=== PATIENT | male | born 1950 | race Caucasian/White ===

== ENCOUNTER 2019-11-27 09:13 | Outpatient (REF) | payer MEDICARE, SELFPAY ==
[2019-11-27 21:32] LABS: HCT 45.4 % (40.0-50.0); HGB 14.8 g/dL (13.5-17.5); Mean Corp. HGB Concentration 32.6 g/dL (32.0-36.0); Mean Corpuscular Hemoglobin 27.6 pg (27.0-33.0); Mean Corpuscular Volume 84.7 fL (80-95); Mean Platelet Volume 10.3 fL (8.0-11.0); Platelet Count 217 x1000/uL (130-400); RBC 5.36 m/cumm (4.50-6.00); RBC Distribution Width 15.4 % (11.8-14.1); White Blood Cell Count 6.83 k/cumm (4.4-10.8)
[2019-11-27 22:06] LABS: ALT 36 U/L (16-63); AST 20 U/L (15-37); Alkaline Phosphatase 73 U/L (46-116); Anion Gap 8.8 mmol/L (3-11); BUN 20 mg/dL (7-18); Bilirubin, Total 0.3 mg/dL (0.2-1.0); CO2 30.2 mmol/L (21.0-32.0); Calculated LDL 115 mg/dL (<100); Chloride 105 mmol/L (98-107); Cholesterol 172 mg/dL (<200); Glucose 80 mg/dL (74-106); HDL Cholesterol 39 mg/dL (40-60); Potassium 4.6 mmol/L (3.5-5.1); Sodium 144 mmol/L (136-145); Total Protein 7.2 g/dL (6.4-8.2); Triglyceride 91 mg/dL (<150)
== END 2019-11-27 09:33 ==
LOC: NCHCN 09:13
PROVIDERS: PCP Internal Medicine; Visit Provider Family Medicine
DX: I10 Essential (primary) hypertension (principal); E78.00 Pure hypercholesterolemia, unspecified
CPT/HCPCS: 80053; 80061; 85027

== ENCOUNTER 2021-04-19 09:42 | Outpatient (REF) | payer MEDICARE, SELFPAY ==
[2021-04-19 17:03] LABS: ALT 33 U/L (16-63); AST 17 U/L (15-37); Alkaline Phosphatase 74 U/L (46-116); Anion Gap 7.4 mmol/L (3-11); BUN 16 mg/dL (7-18); Bilirubin, Total 0.3 mg/dL (0.2-1.0); CO2 32.6 mmol/L (21.0-32.0); CREATININE 0.9 mg/dL (0.70-1.30); Calcium 9.2 mg/dL (8.5-10.1); Calculated LDL 108 mg/dL (<100); Chloride 106 mmol/L (98-107); Cholesterol 167 mg/dL (<200); Glucose 92 mg/dL (74-106); HDL Cholesterol 44 mg/dL (40-60); Potassium 5.1 mmol/L (3.5-5.1); Sodium 146 mmol/L (136-145); Total Protein 7.5 g/dL (6.4-8.2); Triglyceride 76 mg/dL (<150)
== END 2021-04-19 09:43 | disposition home or self-care (01) ==
LOC: NCHCN 09:42
PROVIDERS: PCP Internal Medicine; Visit Provider Family Medicine
DX: I10 Essential (primary) hypertension (principal); E78.00 Pure hypercholesterolemia, unspecified; Z12.5 Encounter for screening for malignant neoplasm of prostate
CPT/HCPCS: 80053; 80061; 84153

== ENCOUNTER 2021-06-30 20:06 | Inpatient (IN) | payer MEDICARE, SELFPAY ==
[2021-06-30] VITALS (27 sets, daily range): BP systolic 163–192; BP diastolic 71–104; PULSE 67–87; RESP 14–29; TEMP 37.2; O2SAT 91–100
--- NOTE | 2021-06-30 20:15 | DI.CT_ITS ---
Exam(s) CT HEAD WO EXAM: CT HEAD WO CLINICAL HISTORY: Fall, amnesia, head injury. TECHNIQUE: Imaging Protocol: Axial computed tomography images with coronal and sagittal reformatted images were created and reviewed COMPARISON: No exams were available for comparison FINDINGS: There are no skull fractures. There is mucosal thickening in maxillary sinuses bilaterally not asso ciated with fluid levels therein. Remainder of the paranasal sinuses are clear as are the mastoid ai r cells. There is no evidence of intracranial hemorrhage, mass effect, or shift of midline structures. There are no extra-axial fluid collections. The ventricles are not enlarged or shifted and there is no blo od within the ventricular system nor within the basal cisterns. IMPRESSION: No acute intracranial findings on this noninfused CT scan of the brain. Mucosal thickening noted in both maxillary sinuses. No fluid levels therein. RADIATION DOSE DELIVERED: 866.42mGy.cm Total DLP DATA REPOSITORY: All CT scans at this facility are submitted to the National Radiology Data Registry (NRDR) Dose Index Registry (DIR) with the [employer] (A[employer]). RADIATION OPTIMIZATION: All CT scans at this facility use at least one of these dose optimization te chniques: automated exposure control; mA and/or kV adjustment per patient size (includes targeted exa ms where dose is matched to clinical indication); or iterative reconstruction.
--- NOTE | 2021-06-30 20:15 | RT.EKG_ITS ---
APPROVED REPORT Exam: Resting ECG Reason for Exam: AMS Patient Location: E HR:80 bpm ECG Measurements Heart Rate 80 AXIS NV 169 P 46 QRSd 105 QRS -13 QT 403 T 1 QTc 463 Conclusion Sinus rhythm...normal P axis, V-rate 60- 99 Probable left ventricular hypertrophy...multiple LVH criteria Inferior infarct, old...Q >35mS, II III aVF
--- NOTE | 2021-06-30 20:30 | DI.RAD_ITS ---
Exam(s) XR CHEST 2V PA LATERAL EXAM: XR CHEST 2V PA LATERAL CLINICAL HISTORY: amnesia, AMS. TECHNIQUE: 2D digital imaging was performed. COMPARISON: No exams were available for comparison FINDINGS: Heart size is normal. The mediastinum is not widened. Subsegmental platelike atelectasis noted in the left lung base lingular segment. No other pulmonary findings. No pleural effusions. IMPRESSION: Subsegmental platelike atelectasis evident in the left lung base lingular segment. DATA REPOSITORY: RADIATION DOSE DELIVERED:
--- NOTE | 2021-06-30 20:42 | ED.GENADUL_ITS ---
Discharge Plan Disposition Patient Disposition: [facility] INPATIENT Condition: Stable Discharge Details Chief Complaint: AMS/LOC Clinical Impression: Global amnesia Primary Care Provider: Geraldine Monge ED Provider: Bud Jimenez Home Meds and New Rx's Prescriptions: No Action aspirin [Adult Aspirin Regimen] 81 mg tablet,delayed release (DR/EC) 81 mg PO DAILY RF: 0 multivitamin Tablet 1 tab PO DAILY RF: 0 pantoprazole 40 mg tablet,delayed release (DR/EC) 40 mg PO DAILY RF: 0 lisinopril 20 mg tablet 20 mg PO DAILY RF: 0 simvastatin 40 mg tablet 40 mg PO DAILY RF: 0 hydrochlorothiazide 25 mg tablet 25 mg PO DAILY RF: 0 tadalafil [Cialis] 5 mg tablet 5 mg PO DAILY PRNRF: 0 mupirocin 2 % ointment 1 applic topical TID 21 Days Qty: 15 RF: 0 Medical Decision Making 71-year-old male presents emergency department with his . She reports she had been away visiting a sick family member in the [facility], returned this evening approximately 5:30 PM. After she returned home and the patient walked in the door from their barn and stated he hit his head. The patient's states that she noticed he then demonstrated to her inability to form anterograde memories, with repetitive questioning on what was happening at home on route.. She also states that he seemed to have no recall of where a large amount of saez in his pocket came from and that he forgets buying a [employer] tractor 3 days ago. I would note the patient's also notes he has had intermittent swelling of his and tongue the past 3 weeks. He does take an MOISES inhibitor and is at risk for angioedema, although I do not feel this is related to today's presentation. Upon arrival to the ER, the patient is pleasant, engaging, alert and interactive he is slightly hypertensive with blood pressure 188/104. This improved to 170/75. ( states typically approixmately 160's SBP) His neurologic exam is notable primarily for memory difficulty, there are no other focal neurologic deficits. 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 He is unable to correctly state the president, the year or month. Differential diagnosis includes transient global amnesia, head injury with concussion, cardiac event, CVA, atypical migraine. 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 CT scan of the head without acute intracranial findings. Chest x-ray within the thinks opacity at the lateral left lung base, representing scarring or atelectasis. See formal report. Laboratories including CBC, chemistries with a troponin, are reassuring. I do feel the patient should be admitted for further work-up potentially to include MRI. Lab Data Lab results reviewed: Yes I reviewed the patient's lab results. Labs: Laboratory Results - last 24 hr 06/30/21 06/30/21 06/30/21 20:45 20:45 20:45 WBC 9.49 RBC 5.08 Hgb 13.7 Hct 41.8 MCV 82.3 MCH 27.0 MCHC 32.8 RDW 14.6 H Plt Count 191 MPV 9.9 Immature Gran % 0.4 Neutrophils % 74.2 Lymphocytes % 14.2 Monocytes % 8.9 Eosinophils % 2.0 Basophils % 0.3 Nucleated RBC % 0 Absolute Neutrophils 7.04 H Absolute Lymphocytes 1.35 Absolute Monocytes 0.84 H Absolute Eosinophils 0.19 Absolute Basophils 0.03 PT 10.5 INR 1.0 Sodium 140 Potassium 3.4 L Chloride 104 Carbon Dioxide 29.3 Anion Gap 6.7 BUN 19 H Creatinine 0.9 Estimated GFR/1.73 m2 >= 60.00 Glucose 107 H Calcium 8.8 Magnesium 1.8 Total Bilirubin 0.3 AST 21 ALT 31 Alkaline Phosphatase 71 Troponin I < 50 Total Protein 7.5 Albumin 3.9 Ethyl Alcohol < 3.0 HPI General Mode of arrival: ambulatory . Date/Time Provider Initiated Documentation: 06/30/21 20:06 . Limitations to Documentation: no limitations . Information obtained by: patient . History of Present Illness 71 year old M presents to the emergency department with the chief complaint of Amnesia, question head injury, Quality is described as constant, and is localized to the head. Patient started experiencing this hour(s) and it has been constant. No relieving factors improve symptom(s), No exacerbating factors reported . Patient notes denies headaches, nausea/vomiting, seizure and weakness. Patient did receive the following treatments prior to arrival, none Related Data Home Medications Medication Instructions Recorded Confirmed aspirin 81 mg tablet,delayed 81 mg PO DAILY 05/25/21 06/30/21 release hydrochlorothiazide 25 mg tablet 25 mg PO DAILY 05/25/21 06/30/21 lisinopril 20 mg tablet 20 mg PO DAILY 05/25/21 06/30/21 multivitamin 1 tab PO DAILY 05/25/21 06/30/21 pantoprazole 40 mg tablet,delayed 40 mg PO DAILY 05/25/21 06/30/21 release simvastatin 40 mg tablet 40 mg PO DAILY 05/25/21 06/30/21 tadalafil 5 mg tablet 5 mg PO DAILY PRN 05/25/21 06/23/21 mupirocin 2 % topical ointment 1 applic TOPICAL TID 21 Days #15 g 06/23/21 06/23/21 Previous Rx's Medication Instructions Recorded mupirocin 2 % topical ointment 1 applic TOPICAL TID 21 Days #15 g 06/23/21 Allergies Allergy/AdvReac Type Severity Reaction Status Date / Time No Known Allergies Allergy Verified 06/30/21 20:40 General Stated Complaint: AMS/LOC PETER: 3 Review of Systems Narrative: Denies any headache. His states he has been having intermittent chest pains for some weeks. She states he slipped and fell on ice working at the barn twice in the past 2 weeks. Patient denies to me headache, neck, back, chest pain. 8 systems were reviewed and otherwise negative. PFSH All Active Problems (Updated 06/30/21 @ 21:57 by Bud Jimenez MD) Global amnesia (Acute) Nasal polyposis (Acute) Lesion of nasal septum (Acute) Medical History Erectile dysfunction GERD (gastroesophageal reflux disease) Hypercholesterolemia Hypertension Left ankle pain Lesion of nasal cavity Obesity Prostate cancer Rotator cuff tear Tremor Surgical History H/O left knee surgery duplicate patella removed History of surgery on left wrist Hx of prostatectomy Hx of wisdom tooth extraction Family History Mother Colon cancer Sister Colon cancer Brother Colon cancer Social History Smoking/Tobacco Use Status: Never Smoking risk assessment performed?: Yes Alcohol Intake: current Alcohol Intake frequency: holidays/special occasions only Drug use: Never Substance use type: does not use Household members: spouse 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 Pleasant, well groomed, interactive. HEAD: Normocephalic, atraumatic ENT: Mucous membranes moist, oropharynx unremarkable, External ear exam unremarkable EYES: PERRL, EOMI NECK: Nontender, no step-off or deformity, full ROM, no FABRICIO, no menigismus CHEST/RESP: Nontender, clear to auscultation bilateral, no wheeze/rhonchi/rales CARDIOVASCULAR: RRR, no murmur, rub raymundo. 2+ Rad pulse bilateral ABDOMEN: Soft, nontender, no mass. +Bowel sounds EXT: Full ROM, no edema, no rash Neuro: Grossly normal neurologic exam, conversant, interactive. Psych: Speech fluent, thoughts congruent, affect normal Course Vital Signs Vital signs: Vital Signs Pulse 87 06/30/21 20:14 Respiratory Rate 18 06/30/21 20:14 Blood Pressure 188/104 H 06/30/21 20:14 Pulse Oximetry 98 06/30/21 20:14 Pulse 87 06/30/21 20:14 Respiratory Rate 18 06/30/21 20:14 Respiratory Effort 06/30/21 20:19 Respiratory Depth Normal 06/30/21 20:19 Respiratory Pattern Normal 06/30/21 20:19 Blood Pressure 188/104 H 06/30/21 20:14 Pulse Oximetry 98 06/30/21 20:14 Oxygen Delivery Method Room Air 06/30/21 20:14 Oxygen Flow Rate 0 06/30/21 20:14 Pain Level 0 06/30/21 20:14
[2021-06-30 21:01] LABS: Abs Immature Grans 0.04 10^3/uL (0.0-0.06); Absolute Basophil Count 0.03 10^3/uL (0.0-0.2); Absolute Eosinophil Count 0.19 10^3/uL (0.0-0.7); Absolute Lymphocyte Count 1.35 10^3/uL (1.2-3.4); Absolute Monocyte Count 0.84 10^3/uL (0.1-0.8); Absolute Neutrophil Count 7.04 10^3/uL (1.2-6.7); Basophils % 0.3; HCT 41.8 % (40.0-50.0); HGB 13.7 g/dL (13.5-17.5); Immature Grans % 0.4; Lymphocytes % 14.2; MCHC 32.8 % (32.0-36.0); MCV 82.3 fL (80-95); MPV 9.9 fL (8.0-11.0); Monocytes % 8.9; Neutrophils % 74.2; Nucleated RBC 0 %; Platelet Count 191 10^3/uL (130-400); RBC 5.08 10^6/uL (4.36-5.78); RDW 14.6 % (11.8-14.1); RDW-SD 43.6 fL; WBC 9.49 10^3/uL (4.4-10.8)
--- NOTE | 2021-06-30 21:11 | DI.VRAD_ITS ---
PROCEDURE INFORMATION: Exam: CT Head Without Contrast Exam date and time: 06/30/2021 8:29 PM Age: 71 years old Clinical indication: Injury or trauma; Fall; Blunt trauma (contusions or hematomas) TECHNIQUE: Imaging protocol: Computed tomography of the head without contrast. COMPARISON: No relevant prior studies available. FINDINGS: Brain: Cerebral sulci show bilateral symmetry with no supratentorial mass or mass effect detected. Brainstem and cerebellum are normal in appearance. There is no evidence of acute intracranial hemorrhage. Cerebral ventricles: Ventricular and cisternal spaces are normal in size and configuration and there is no midline shift or hydrocephalus seen. Paranasal sinuses: Bilateral maxilloethmoidal mucosal disease noted. Mastoid air cells: Normally pneumatized and clear bilaterally. Bones/joints: Bony calvarium and skull base are intact and no acute fractures are detected. Soft tissues: Unremarkable. IMPRESSION: Unremarkable noncontrast head CT with no evidence of an acute intracranial process. Dictated and Authenticated by: Jozef Rendon MD. Ordering:GERMÁN Farrell MD
--- NOTE | 2021-06-30 21:13 | DI.VRAD_ITS ---
PROCEDURE INFORMATION: Exam: XR Chest Exam date and time: 06/30/2021 8:42 PM Age: 71 years old Clinical indication: Other: Fall, amnesia TECHNIQUE: Imaging protocol: XR of the chest. Views: 2 views. COMPARISON: No relevant prior studies available. FINDINGS: Lungs: Indistinct opacity at the lateral left lung base could represent minimal scarring or subsegmental atelectasis with the remainder of both lungs and their pleural margins otherwise clear. Pleural spaces: No pneumothorax or pleural effusion seen. Heart/Mediastinum: Heart size is normal and vessel margins are sharply defined. Bones/joints: No acute osseous lesions are detected. IMPRESSION: Indistinct opacity at the lateral left lung base could represent minimal scarring or subsegmental atelectasis and there is no other evidence of an acute cardiopulmonary process detected. Dictated and Authenticated by: Jozef Rendon MD. Ordering:GERMÁN Farrell MD
[2021-06-30 21:18] LABS: Prothrombin Time 10.5 sec (9.3-11.0)
[2021-06-30 21:28] LABS: ALT 31 U/L (16-63); AST 21 U/L (15-37); Albumin 3.9 g/dL (3.4-5.0); Alkaline Phosphatase 71 U/L (46-116); Anion Gap 6.7 mmol/L (3-11); BUN 19 mg/dL (7-18); Bilirubin, Total 0.3 mg/dL (0.2-1.0); CO2 29.3 mmol/L (21.0-32.0); CREATININE 0.9 mg/dL (0.70-1.30); Calcium 8.8 mg/dL (8.5-10.1); Chloride 104 mmol/L (98-107); Glucose 107 mg/dL (74-106); Magnesium 1.8 mg/dL (1.8-2.4); Potassium 3.4 mmol/L (3.5-5.1); Sodium 140 mmol/L (136-145); Total Protein 7.5 g/dL (6.4-8.2); Troponin I < 50 ng/L (<or=60)
[2021-06-30 21:29] LABS: ETHANOL BLOOD < 3.0 mg/dL (<10)
[2021-06-30] MEDS: Normal Saline 1,000 ML 125 ML IV (21:30)
[2021-06-30 21:37] LABS: Bilirubin Negative (Negative); Blood Trace-lysed (Negative); Clarity Clear (Clear); Glucose Negative (Negative); Ketones Negative (Negative); Leukocyte Esterase Negative (Negative); Nitrite Negative (Negative); Specific Gravity 1.025 (1.005-1.025); Urobilinogen 0.2 EU/dL (Up TO 0.2)
[2021-06-30 21:44] LABS: Bacteria Negative HPF (Negative); C & S Indicated? No; Casts Negative LPF (Negative); Crystals Negative HPF (Negative); Epithelial Cells Few HPF (Negative); Mucus Negative (Negative); WBC 0-2 HPF (0-5)
[2021-06-30 21:50] LABS: Source Nasal/Nares
[2021-06-30] MEDS: Aspirin 325 MG TAB PO (22:01)
[2021-06-30] MEDS: Potassium Chloride 20 MEQ TABCR PO (22:49)
--- NOTE | 2021-06-30 23:26 | HPE_ITS ---
Date of service: 06/30/21 Time of Service: 23:26 Assessment and Plan Assessment and plan (1) Acute alteration in mental status: Status: Acute Assessment and plan: Rule out CVA, rule out posterior reversible encephalopathy syndrome, rule out post concussion (although no clear hx of closed head injury) Will monitor on telemetry with frequent vital signs and neurologic checks. We will try to bring his blood pressure down under 150 mm. We will give him labetalol and if this is unsuccessful then consider transfer to ICU for nicardipine drip. Will obtain MRI scan of the brain in the morning and requested neurology consultation. (2) Hypertension: Assessment and plan: Uncontrolled hypertension. Unclear as to whether exacerbation his blood pressure readings tonight or cause or effect of his acute mental status alteration. Based on the patient's acute onset of confusion/memory loss and his uncontrolled BP I think it would be prudent to move him to ICU for placement of radial arterial line for monitoring of his BP and initiation of nifedipine drip if this confirms his elevated blood pressure readings. Qualifiers: Hypertension type: primary hypertension Qualified Code(s): I10 - Essential (primary) hypertension History of Present Illness History of Present Illness Chief Complaint: altered mental status Narrative: 71-year-old male with history of hypertension and hypercholesterolemia, prostate cancer who presented this evening to the ED at [facility] with acute confusion. Patient's had been away visiting a sick family member in [place] and returned this evening around 5:30 PM and found her to be confused with short-term memory loss. Patient had just walked into home from their barn the patient reported that he had hit his head. Patient had a large amount of saez in his pocket and could not recall where the money came from and the patient also had forgotten that he recently had bought a [employer] tractor 3 days prior. 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 Patient was evaluated in the emergency department by Dr. 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 Nevertheless she could not state the current year or month nor the [facility] states nor could he recall that he had told his that he did hit his head nor could he recall having bought the tractor. Evaluation in the emergency department clued a CT scan of his head as well as a chest x-ray and routine labs. Noncontrast CT scan of the head was unremarkable. Chest x-ray suggested an indistinct opacity at the left lateral lung base for which minimal scarring or subsegmental atelectasis could not be excluded. Otherwise no acute cardiopulmonary process was detected. Labs including CBC, CMP, blood alcohol level, nasal PCR for SARS-CoV-2, pro time and INR, and a urinalysis. All of his labs are pretty unremarkable except for a mild hypokalemia with a potassium of 3.4 but otherwise normal troponin levels and normal LFTs and the rest of his electrolytes and CBC were normal. Urinalysis also was unremarkable. SARS-CoV-2 PCR is pending at this time. Blood alcohol level was less than 3.0 milligrams per deciliter. With regard to his vital signs of note his blood pressure was elevated on admission at 188/104 and was as high as 192/71. Per Dr. Jimenez's discussion with the patient's his usual blood pressure runs in the 160s. He did not receive anything for treatment of his blood pressure in the emergency department and prior to admission his blood pressure is decreased to 165/73. Patient usually takes lisinopril 20 mg daily along with hydrochlorothiazide 25 mg daily. His informed Dr. Jimenez that the patient had been recently complaining of swelling of his tongue although none was noted tonight. I discussed with Dr. Jimenez appropriate placement the patient and he felt the patient could be managed on medical/surgical floor with telemetry monitoring. Further evaluation be obtained in the morning including an MRI of the brain. For tonight we will try to keep his blood pressure under 180 mm and diastolic blood pressure under 110 mm. Review of Systems Unobtainable due to mental status and Unobtainable due to (patient denies any sx of headache, blurred vision, diplopia, n/v) Constitutional Constitutional: Denies headache(s) and Denies weakness Eyes Eyes: Denies loss of vision ENT Ears, Nose, Mouth, and Throat: Denies abnormal hearing, Denies dizziness and Denies headache(s) Musculoskeletal Musculoskeletal: Denies numbness and Denies tingling Neurologic Neurologic: Reports as per HPI, Denies abnormal hearing, Denies abnormal speech, Denies dizziness, Denies headache(s), Denies loss of vision, Reports memory loss, Denies numbness, Denies other visual disturbances, Denies convulsions, D enies seizure-like activity, Denies sensory deficit, Denies tingling, Denies paresthesias and Denies weakness Psychiatric Psychiatric: Reports memory loss PFSH All Active Problems (Updated 07/01/21 @ 00:12 by Lai Jasmine) Acute alteration in mental status (Acute) Global amnesia (Acute) Nasal polyposis (Acute) Lesion of nasal septum (Acute) Medical History Erectile dysfunction GERD (gastroesophageal reflux disease) Hypercholesterolemia Hypertension Left ankle pain Lesion of nasal cavity Obesity Prostate cancer Rotator cuff tear Tremor Surgical History H/O left knee surgery duplicate patella removed History of surgery on left wrist Hx of prostatectomy Hx of wisdom tooth extraction Family History Mother Colon cancer Sister Colon cancer Brother Colon cancer Social History Smoking/Tobacco Use Status: Never Smoking risk assessment performed?: Yes Alcohol Intake: current Alcohol Intake frequency: holidays/special occasions only Drug use: Never Substance use type: does not use Household members: spouse 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 Pets and animals: Yes Pets and animals: dog(s) What is your relationship status?: Panel score (0-1 are the most socially isolated patients): 1 Do you feel safe at home: Yes Do you feel safe in your relationship?: Yes Meds Allergies and Home Medications Allergies Allergy/AdvReac Type Severity Reaction Status Date / Time No Known Allergies Allergy Verified 06/30/21 20:40 Home Medications Medication Instructions Recorded Confirmed Type aspirin 81 mg tablet,delayed 81 mg PO DAILY 05/25/21 06/30/21 History release hydrochlorothiazide 25 mg tablet 25 mg PO DAILY 05/25/21 06/30/21 History lisinopril 20 mg tablet 20 mg PO DAILY 05/25/21 06/30/21 History multivitamin 1 tab PO DAILY 05/25/21 06/30/21 History pantoprazole 40 mg tablet,delayed 40 mg PO DAILY 05/25/21 06/30/21 History release simvastatin 40 mg tablet 40 mg PO DAILY 05/25/21 06/30/21 History tadalafil 5 mg tablet 5 mg PO DAILY PRN 05/25/21 06/23/21 History mupirocin 2 % topical ointment 1 applic TOPICAL TID 21 Days #15 g 06/23/21 06/23/21 Rx Exam Narrative Exam Narrative: I checked his BP in both arms using a large arm cuff using both manual and automated cuff. right arm per manual was 164/84 and per automated cuff was 167/87; in the left arm it was 184/90 manual and 179/91 per auto cuff Const General: cooperative, healthy appearing and no acute distress Nutritional Appearance: obese Orientation: alert, awake, oriented to person, oriented to place (only in that he knows he is in a hospital but was unsure as to which one), not oriented to time and confused HENAL Head: normal to inspection, no palpable skull fracture and normocephalic Ears: hearing grossly normal bilaterally, external ears normal and TM's normal bilaterally General nose exam: external nose normal, nares normal, nasal mucous membranes and turbinates normal and septum normal Face and sinus: normal facial exam Mouth: oral mucosae normal, lip normal, tongue normal, oropharynx normal and moist mucous membranes Teeth and gingiva: dentition normal Throat: posterior oropharynx normal Eyes General: appearance normal, both eyes and all related structures Alignment and Position: alignment normal Periorbital: periorbital findings normal Eyelids: eyelids normal Conjunctivae: conjunctivae normal Sclera: sclerae normal Cornea: corneas normal Pupils: PERRL, normal by confrontation and accommodation normal EOM: EOM intact bilaterally Direct ophthalmoscopy: normal light reflex, no papilledema and fundi normal bilaterally Neck Neck: normal visual inspection, full ROM, no lymphadenopathy, no meningeal signs, trachea midline, supple and no JVD Thyroid: thyroid normal Carotids: normal carotid upstroke Lymphatic: no lymphadenopathy noted Chest Chest: normal inspection of the chest and normal palpation of entire chest wall Resp Effort & Inspection: normal respiratory effort and able to speak in complete sentences Auscultation: clear to auscultation bilaterally Percussion: percussion normal Cardio Jugular venous pressure: no JVD Palpation: normal PMI Rate: regular rate Rhythm: regular rhythm Heart Sounds: S1 normal, S2 normal and normal, physiologic split S2 Bruits: no abdominal aortic bruits Pulses: brachial pulses present, radial pulses present, ulnar radial pulses present, posterior tibial pulses present and dorsalis pedis present GI Inspection: normal to inspection Palpation: soft and no hepatosplenomegaly Percussion: normal to percussion Auscultation: normal bowel sounds Back/Spine/Pelvis Back: no CVA tenderness Cervical Spine: normal cervical lordosis Thoracic/Lumbar Spine: thoracic and lumbar spine normal to inspection Skin General skin exam: no rashes or lesions noted Lesions: no lesions Trauma: no lacerations or abrasions Wounds: no wounds Nails: normal Neuro General: patient alert, patient awake and oriented Patient Orientation: Person and Place (knows) Cranial Nerves: CN's II-XI intact bilaterally Cognition: abnormal cognition Speech: speech normal Motor: muscle tone normal throughout, strength 5/5 throughout, no pronator drift, no movement abnormalities noted and no fasciculations Sensory Exam: no sensory deficits noted DTR's: Rt Triceps: 3+, Lt Triceps: 3+, Rt Biceps: 3+, Rt Brachioradialis: 3+, Lt Brachioradialis: 3+, Rt Patellar: 2+, Lt Patellar: 2+, Rt Ankle: 2+ and Lt Ankle: 2+ Plantar Reflexes: Withdrawal: left and bilateral Pupils: Normal pupillary reactivity/response: bilateral Extrem General: normal to inspection, full ROM and capillary refill normal Psych Appearance: grossly normal and well kempt Mental Status: other Speech and Movement: speech and movement normal Mood: other Affect: normal affect Attitude: cooperative Thought Process: circumstantial and perseverating Thought Content: ideas of reference Insight: poor Judgment: poor Results Imaging Chest x-ray: report reviewed Additional studies: Noncontrast CT scan of the head: FINDINGS: Brain: Cerebral sulci show bilateral symmetry with no supratentorial mass or mass effect detected. Brainstem and cerebellum are normal in appearance. There is no evidence of acute intracranial hemorrhage. Cerebral ventricles: Ventricular and cisternal spaces are normal in size and configuration and there is no midline shift or hydrocephalus seen. Paranasal sinuses: Bilateral maxilloethmoidal mucosal disease noted. Mastoid air cells: Normally pneumatized and clear bilaterally. Bones/joints: Bony calvarium and skull base are intact and no acute fractures are detected. Soft tissues: Unremarkable. IMPRESSION: Unremarkable noncontrast head CT with no evidence of an acute intracranial process. EKG: image reviewed Labs Result diagrams: 06/30/21 20:45 06/30/21 20:45 Labs: Laboratory Results - last 24 hr 06/30/21 06/30/21 06/30/21 20:45 20:45 20:45 WBC 9.49 RBC 5.08 Hgb 13.7 Hct 41.8 MCV 82.3 MCH 27.0 MCHC 32.8 RDW 14.6 H Plt Count 191 MPV 9.9 Immature Gran % 0.4 Neutrophils % 74.2 Lymphocytes % 14.2 Monocytes % 8.9 Eosinophils % 2.0 Basophils % 0.3 Nucleated RBC % 0 Absolute Neutrophils 7.04 H Absolute Lymphocytes 1.35 Absolute Monocytes 0.84 H Absolute Eosinophils 0.19 Absolute Basophils 0.03 PT 10.5 INR 1.0 Sodium 140 Potassium 3.4 L Chloride 104 Carbon Dioxide 29.3 Anion Gap 6.7 BUN 19 H Creatinine 0.9 Estimated GFR/1.73 m2 >= 60.00 Glucose 107 H Calcium 8.8 Magnesium 1.8 Total Bilirubin 0.3 AST 21 ALT 31 Alkaline Phosphatase 71 Troponin I < 50 Total Protein 7.5 Albumin 3.9 Urine Color Urine Clarity Urine pH Ur Specific [place] Urine Protein Urine Ketones Urine Blood Urine Nitrite Urine Bilirubin Urine Urobilinogen Ur Leukocyte Esterase Urine RBC Urine WBC Ur Epithelial Cells Urine Crystals Urine Bacteria Urine Casts Urine Mucus Ur Culture Indicated? Urine Glucose Ethyl Alcohol < 3.0 COVID-19 Source 06/30/21 06/30/21 21:20 21:45 WBC RBC Hgb Hct MCV MCH MCHC RDW Plt Count MPV Immature Gran % Neutrophils % Lymphocytes % Monocytes % Eosinophils % Basophils % Nucleated RBC % Absolute Neutrophils Absolute Lymphocytes Absolute Monocytes Absolute Eosinophils Absolute Basophils PT INR Sodium Potassium Chloride Carbon Dioxide Anion Gap BUN Creatinine Estimated GFR/1.73 m2 Glucose Calcium Magnesium Total Bilirubin AST ALT Alkaline Phosphatase Troponin I Total Protein Albumin Urine Color Yellow Urine Clarity Clear Urine pH 7.0 Ur Specific [place] 1.025 Urine Protein Negative Urine Ketones Negative Urine Blood Trace-lysed H Urine Nitrite Negative Urine Bilirubin Negative Urine Urobilinogen 0.2 Ur Leukocyte Esterase Negative Urine RBC 3-5 H Urine WBC 0-2 Ur Epithelial Cells Few Urine Crystals Negative Urine Bacteria Negative Urine Casts Negative Urine Mucus Negative Ur Culture Indicated? No Urine Glucose Negative Ethyl Alcohol COVID-19 Source Nasal/Nares Last Vital Signs Pulse 72 06/30/21 22:16 Resp 22 06/30/21 22:16 BP 165/73 H 06/30/21 22:16 Pulse Ox 95 06/30/21 22:20
[2021-06-30 23:45] LABS: Troponin I < 50 ng/L (<or=60)
[2021-07-01] VITALS (86 sets, daily range): BP systolic 115–211; BP diastolic 56–158; PULSE 54–136; RESP 12–29; TEMP 36.6–36.8; O2SAT 88–97
[2021-07-01 00:18] LABS: COVID-19 PCR Negative (Negative)
--- NOTE | 2021-07-01 03:08 | W.PM.OP ---
Date of service: 07/01/21 Time of Service: 03:08 Operative Note Operative Note DATE OF PROCEDURE: 07/01/21 PRE-OP DIAGNOSIS: hypertensive urgency; r/o PRES POST-OP DIAGNOSIS: same PROCEDURE: left radial artery catheterization Refer to Anesthesia Record ESTIMATED BLOOD LOSS: 5 Patient was transported to: no change Patient's condition: stable Indications: hypertensive urgency; r/o PRES Procedure Description: After obtaining verbal consent from the patient and the patient's having explained indications, potential risks and alternative treatment, the left radial artery and ulnar artery were palpated and having confirmed collateral flow to the left hand, the left hand was prepped and draped in sterile fashion after cleansing the skin in sterile chlorhexidine prep. Using the translinear high frequency probe on a [employer] PX machine the radial artery was identified. The skin on either side of the artery was infiltrated w/ 0.5 mL of 1% lidocaine w/out epinephrine. The left radial artery was cannulated using an Arrow 20 gauge 1 1/2 inch quick flash radial arterial catheter. Direct visualization of the needle insertion was obtained using ultrasound guidance in the transverse plane of the artery. Flash of blood was seen in the catheter and the self contained arterial guide wire was advanced. However when the catheter was advanced, resistance was met necessitating removal of the guide wire and restarting w/ a new kit. Again ultrasound was used to identify the artery and ensure patency. The second attempt was successful and the guide wire and catheter were successfully advanced with pulsatile flow from the catheter. The skin was re-anesthetized with 0.5 mL of lidocaine and the catheter was sutured to the skin and a sterile dressing was applied. After the catheter was flushed and zeroed, the initial arterial BP reading was 206/77. The patient will be started on nifedipine drip to titrate to SBP under 150 mm.
[2021-07-01] MEDS: Lidocaine 1% Multi-Dose 20 ML VIAL (03:12)
[2021-07-01] MEDS: niCARdipine 25 MG in Normal Saline 240 ML 50 MG IV (03:32)
[2021-07-01 07:18] LABS: TSH (W/Ref FT4) 7.75 uIU/mL (0.36-3.74)
[2021-07-01 07:34] LABS: FREE T4 0.78 ng/dL (0.76-1.46)
[2021-07-01] MEDS: niCARdipine 25 MG in Normal Saline 240 ML 75 MG IV (07:57)
[2021-07-01] MEDS: Potassium Chloride 20 MEQ TABCR PO ×2 (08:38→19:41)
[2021-07-01] MEDS: Chlorthalidone 25 MG TAB PO (08:38)
[2021-07-01] MEDS: Aspirin E.C. 81 MG TABEC PO (08:38)
[2021-07-01] MEDS: Multivitamin TAB 1 TAB PO (08:38)
[2021-07-01] MEDS: Simvastatin 40 MG TAB PO (08:38)
[2021-07-01] MEDS: Enoxaparin 40 MG/0.4 ML SYR SC (08:38)
--- NOTE | 2021-07-01 09:15 | PDOC.CMIN ---
- If Service Date Differs Date of service: 07/01/21 Time of Service: 09:15 Care Management Initial Assess REASON FOR HOSPITALIZATION:: Acute AMS, amnesia, confusion PAST MEDICAL HISTORY/PAST SURGICAL HISTORY:: Medical History . Erectile dysfunction. GERD (gastroesophageal reflux disease). Hypercholesterolemia. Hypertension. Left ankle pain. Lesion of nasal cavity. Obesity. Prostate cancer. Rotator cuff tear. Tremor. Surgical History . H/O left knee surgery. duplicate patella removed. History of surgery on left wrist. Hx of prostatectomy. Hx of wisdom tooth extraction PREVIOUS FUNCTIONAL STATUS/SOCIAL/FAMILY SUPPORTS:: Resides in [place] with [place] he is independent at baseline with a supportive family. CURRENT FUNCTIONAL STATUS:: Per RN, Anjelicas mental status is starting to clear. His is being updated over the phone, as well as many other family members. Work up continues; awaiting updates from interdisciplinary team. Frederic is preparing to go downstairs for imaging, he is in a wheelchair at the threshold of his room. CM is updated by RN, Frederic is scheduled for multiple consults and tests today. CM will continues to follow. Has patient been provided with info about the portal/API?: Yes Did the patient sign up for the portal?: Yes (Previously) CODE STATUS:: Full Code INSURANCE COVERAGE / FINANCIAL ISSUES:: BC/BS. [facility] CURRENT HOME/COMMUNITY SERVICES/EQUIPMENT:: None, currently. PRIMARY CARE PHYSICIAN:: Geraldine Monge POTENTIAL DISCHARGE NEEDS:: Follow up appointments, neurology consult. PATIENT/FAMILY EDUCATION NEEDS:: Review discharge instructions, discuss Ask Me [employer]. ANTICIPATED BARRIERS TO DISCHARGE:: None identified. TRANSPORTATION:: Via private vehicle with family. PLAN:: Anticipate Frederic will return home when ready per MD. He will have outpatient follow up, follow up with his PCP and transport with his family.
[2021-07-01] MEDS: diazePAM 10 MG/2 ML SYR 3 MG IVP (10:38)
--- NOTE | 2021-07-01 12:27 | NCONE_ITS ---
Date of service: 07/01/21 Time of Service: 12:27 Assessment and Plan Assessment and plan (1) Acute alteration in mental status: Status: Acute (2) Global amnesia: Status: Acute Assessment and plan: Mr. Melo is a 71 year-old, right-handed man who was admitted with altered mental status/confusion that has improved overnight. The timing and duration of symptoms are unknown which makes figuring out what happened quite difficult. Based on what we do know, Transient Global Amnesia seems most likely etiology. I recommend further work-up with a brain MRI w/o as well as a vitamin B12 level. Hypertensive encephalopathy and PRES seem less likely but again recommend MRI as further work-up. He should follow-up in the neurology clinic in 4-6 weeks. History of Present Illness History of Present Illness Chief Complaint: AMS Narrative: Handedness: right. HPI: Mr. Melo is a 71 year-old man with hypertension, hyperlipidemia, and GERD. He was brought to the ER yesterday by his after she returned from out of town (left town on 06/28/21) and found him confused with money his pockets and no recollection of how it got there. 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 He works daily and notes that on a normal basis he doesn't know what day of the week it is. Thus, putting together a timeline of events since his has been gone was difficult. He recalls attending an optometry visit on Monday06/28/21. Followed by working on the horse facility. On Monday06/29/21 he recalls his ladder tipping over due to being place don unsteady ground. He landed on his back. Does not think he hit his head. Was not injured and able to carry on with his normal activities. 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 He believes that that client could have recognized if he was not in a normal state. He can't give me any information from yesterday. He does not recall his returning. Does not recall being the ER. He has not had any headaches. He believes he ate and drank normally while was gone as she preps meals for him ahead of time. He drinks ETOH only rarely and none in the last week. He has nocturia 2-3x per night. Feels rested - though notes sleep has improved with new bed in which he can sleep more upright. He snores. He has never had a sleep study. In the ER, his BP was 180-200s systolic. CBC, CMP, UA ok. TSH 7.75, FT4 0.78. Trop x 1 neg. CTH unremarkable (I reviewed the images personally). Overnight, he seems to be doing better. This am seems to be back to baseline. On nifedipine drip for his persistently elevated BP. Consults Requesting physician: Lai Jasmine Review of Systems All systems reviewed & are unremarkable except as noted in HPI and below PFSH All Active Problems (Updated 07/01/21 @ 00:12 by Lai Jasmine) Acute alteration in mental status (Acute) Global amnesia (Acute) Nasal polyposis (Acute) Lesion of nasal septum (Acute) Medical History Erectile dysfunction GERD (gastroesophageal reflux disease) Hypercholesterolemia Hypertension Left ankle pain Lesion of nasal cavity Obesity Prostate cancer Rotator cuff tear Tremor Surgical History H/O left knee surgery duplicate patella removed History of surgery on left wrist Hx of prostatectomy Hx of wisdom tooth extraction Family History Mother Colon cancer Sister Colon cancer Brother Colon cancer Social History Smoking/Tobacco Use Status: Never Smoking risk assessment performed?: Yes Alcohol Intake: current Alcohol Intake frequency: holidays/special occasions only Drug use: Never Substance use type: does not use Household members: spouse 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 Pets and animals: Yes Pets and animals: dog(s) What is your relationship status?: Panel score (0-1 are the most socially isolated patients): 1 Do you feel safe at home: Yes Do you feel safe in your relationship?: Yes Visit Medication and Allergies Active Medications Generic Name Dose Route Start Last Admin Trade Name Freq PRN Reason Stop Dose Admin Acetaminophen 0 mg 06/30/21 22:01 Acetaminophen 325 Mg Tab PO Q4H PRN PRN Al Hydrox/Mg Hydrox/Simethicone 30 ml 06/30/21 22:01 Mylanta Suspension 30 Ml Cup PO Q2H PRN PRN Amlodipine Besylate 5 mg 07/01/21 11:35 Amlodipine 5 Mg Tab PO DAILY [facility] Aspirin 81 mg 07/01/21 08:30 07/01/21 08:38 Aspirin E.C. 81 Mg Tabec PO 81 mg DAILY [facility] Administration Atorvastatin Calcium 20 mg 07/01/21 20:00 Atorvastatin 20 Mg Tab PO QPM [facility] Chlorthalidone 25 mg 07/01/21 08:30 07/01/21 08:38 Chlorthalidone 25 Mg Tab PO 25 mg DAILY [facility] Administration Dimethicone/Zinc Oxide 0 gm 06/30/21 22:01 Juvenal Protect Cream 142 Gm Tube TP PRN PRN Docusate Sodium 100 mg 06/30/21 22:01 Docusate Sodium 100 Mg Cap PO TID PRN PRN Enoxaparin Sodium 40 mg 07/01/21 08:00 07/01/21 08:38 Enoxaparin 40 Mg/0.4 Ml Syr SC 40 mg Q24H [facility] Administration Sodium Chloride 500 mls @ 0 mls/hr 06/30/21 20:41 Saline 500ml Bag IV PRN PRN As Directed Nicardipine HCl 50 mg/ Sodium 500 mls @ 75 mls/hr 07/01/21 10:00 Chloride IV INFUSION [facility] Protocol 7.5 MG/HR IV Miscellaneous Supplies 1 each 06/30/21 20:45 Iv Access IV DIRECTED [facility] Labetalol HCl 20 mg 07/01/21 03:32 Labetalol 100 Mg/20 Ml Vial IVP Q1H PRN PRN Magnesium Hydroxide 30 ml 06/30/21 22:01 Milk Of Magnesia 30 Ml Cup PO DAILY PRN PRN Multivitamins 1 tab 07/01/21 08:30 07/01/21 08:38 Multivitamin Tab PO 1 tab DAILY [facility] Administration Polyethylene Glycol 17 gm 06/30/21 22:01 Polyethylene Glycol 3350 17 Gm Packet PO DAILY PRN PRN Constipation Potassium Chloride 20 meq 07/01/21 08:30 07/01/21 08:38 Potassium Chloride 20 Meq Tabcr PO 20 meq BID [facility] Administration Sodium Chloride 0 ml 06/30/21 20:41 Normal Saline Flush 10 Ml Syr IVP PRN PRN Allergies No Known Allergies Allergy (Verified 06/30/21 20:40) Exam Narrative Exam Narrative: Physical Exam: Gen: Patient of apparent stated age, NAD Head and face: no facial or cranial abnormalities Neck: Supple, no meningismus, no occipital tenderness CV: + S1, S2, RRR, no murmur Resp: CTA B/L Abd: soft, nontender, nondistended Ext: No edema. No clubbing or cyanosis. No bony deformity. Neuro Exam: Language: fluency, naming, repetition, and comprehension intact; Mental Status: AAOx3, current events limited though fund of knowledge appears intact; Speech: no dysarthria Cranial nerves: Funduscopy: not performed CN II: visual cunningham intact CN III, IV, : extraocular movements intact, no nystagmus, pupils symmetric and reactive to light CN V: face sensation intact to LT and PP CN VII: no facial asymmetry noted CN VIII: hearing intact bilaterally CN IX, X: palate rises symmetrically CN XI: trapezius/SCM 5/5 bilaterally CN XII: protrudes tongue symmetrically Sensory: intact to LT, PP, vibration, and joint position in all extremities Motor: bulk and tone intact. Fine motor movements intact bilaterally. No pronator drift. Strength 5/5 throughout including the deltoids, biceps, triceps, wrist extensors, hip flexors, knee flexors, knee extensors, ankle flexors, and ankle extensors. Reflexes: 2+ at the biceps, triceps, brachioradialis; reduced in the LE; toes down going bilaterally; Coordination: FTN and HTS intact bilaterally Gait: not tested Results Last Vital Signs Temp 98.1 F 07/01/21 08:15 Pulse 63 07/01/21 09:42 Resp 20 07/01/21 09:42 BP 141/59 H 07/01/21 09:42 Pulse Ox 95 07/01/21 09:42 Labs Result diagrams: 06/30/21 20:45 06/30/21 20:45 Labs: Laboratory Results - last 24 hr 06/30/21 06/30/21 06/30/21 20:45 20:45 20:45 WBC 9.49 RBC 5.08 Hgb 13.7 Hct 41.8 MCV 82.3 MCH 27.0 MCHC 32.8 RDW 14.6 H Plt Count 191 MPV 9.9 Immature Gran % 0.4 Neutrophils % 74.2 Lymphocytes % 14.2 Monocytes % 8.9 Eosinophils % 2.0 Basophils % 0.3 Nucleated RBC % 0 Absolute Neutrophils 7.04 H Absolute Lymphocytes 1.35 Absolute Monocytes 0.84 H Absolute Eosinophils 0.19 Absolute Basophils 0.03 PT 10.5 INR 1.0 Sodium 140 Potassium 3.4 L Chloride 104 Carbon Dioxide 29.3 Anion Gap 6.7 BUN 19 H Creatinine 0.9 Estimated GFR/1.73 m2 >= 60.00 Glucose 107 H Calcium 8.8 Magnesium 1.8 Total Bilirubin 0.3 AST 21 ALT 31 Alkaline Phosphatase 71 Troponin I < 50 Total Protein 7.5 Albumin 3.9 TSH Free T4 Urine Color Urine Clarity Urine pH Ur Specific [place] Urine Protein Urine Ketones Urine Blood Urine Nitrite Urine Bilirubin Urine Urobilinogen Ur Leukocyte Esterase Urine RBC Urine WBC Ur Epithelial Cells Urine Crystals Urine Bacteria Urine Casts Urine Mucus Ur Culture Indicated? Urine Glucose Ethyl Alcohol < 3.0 COVID-19 Source SARS-CoV-2 (PCR) 06/30/21 06/30/21 06/30/21 21:20 21:45 23:20 WBC RBC Hgb Hct MCV MCH MCHC RDW Plt Count MPV Immature Gran % Neutrophils % Lymphocytes % Monocytes % Eosinophils % Basophils % Nucleated RBC % Absolute Neutrophils Absolute Lymphocytes Absolute Monocytes Absolute Eosinophils Absolute Basophils PT INR Sodium Potassium Chloride Carbon Dioxide Anion Gap BUN Creatinine Estimated GFR/1.73 m2 Glucose Calcium Magnesium Total Bilirubin AST ALT Alkaline Phosphatase Troponin I < 50 Total Protein Albumin TSH Free T4 Urine Color Yellow Urine Clarity Clear Urine pH 7.0 Ur Specific [place] 1.025 Urine Protein Negative Urine Ketones Negative Urine Blood Trace-lysed H Urine Nitrite Negative Urine Bilirubin Negative Urine Urobilinogen 0.2 Ur Leukocyte Esterase Negative Urine RBC 3-5 H Urine WBC 0-2 Ur Epithelial Cells Few Urine Crystals Negative Urine Bacteria Negative Urine Casts Negative Urine Mucus Negative Ur Culture Indicated? No Urine Glucose Negative Ethyl Alcohol COVID-19 Source Nasal/Nares SARS-CoV-2 (PCR) Negative 07/01/21 06:40 WBC RBC Hgb Hct MCV MCH MCHC RDW Plt Count MPV Immature Gran % Neutrophils % Lymphocytes % Monocytes % Eosinophils % Basophils % Nucleated RBC % Absolute Neutrophils Absolute Lymphocytes Absolute Monocytes Absolute Eosinophils Absolute Basophils PT INR Sodium Potassium Chloride Carbon Dioxide Anion Gap BUN Creatinine Estimated GFR/1.73 m2 Glucose Calcium Magnesium Total Bilirubin AST ALT Alkaline Phosphatase Troponin I Total Protein Albumin TSH 7.75 H Free T4 0.78 Urine Color Urine Clarity Urine pH Ur Specific [place] Urine Protein Urine Ketones Urine Blood Urine Nitrite Urine Bilirubin Urine Urobilinogen Ur Leukocyte Esterase Urine RBC Urine WBC Ur Epithelial Cells Urine Crystals Urine Bacteria Urine Casts Urine Mucus Ur Culture Indicated? Urine Glucose Ethyl Alcohol COVID-19 Source SARS-CoV-2 (PCR)
[2021-07-01 13:33] LABS: Lab Add On Test DONE
[2021-07-01] MEDS: amLODIPine 5 MG TAB PO (13:43)
--- NOTE | 2021-07-01 14:07 | PGE_ITS ---
Date of Service Date of service: 07/01/21 Time of Service: 14:07 Assessment and Plan Assessment and plan (1) Acute alteration in mental status: Status: Acute Assessment and plan: Rule out CVA/temporal stroke, rule out posterior reversible encephalopathy syndrome, rule out post concussion (although no clear hx of closed head injury), transient global amnesia. Neurology eval appreciated. MRI pending. (2) Hypertension: Assessment and plan: Wean from cardene drip. Initiate amlodipine and change from simvastatin to lipitor d/t amlodipine and simvastatin interaction. Cont chlorthalidone initiated at time of admission. Qualifiers: Hypertension type: primary hypertension Qualified Code(s): I10 - Essential (primary) hypertension Subjective Subjective Patient reports: tolerating a regular diet and afebrile; denies nausea and vomiting Interval history since last seen: He has started to remember some recent events that he could not at the time of presentation. No HURST, CP, palpitations. Exam Const General: cooperative and no acute distress Nutritional Appearance: obese Orientation: alert and oriented x3 Resp Effort & Inspection: normal respiratory effort Auscultation: clear to auscultation bilaterally Cardio Rate: regular rate Rhythm: regular rhythm Heart Sounds: S1 normal and S2 normal GI Palpation: soft and nontender Neuro General: no focal motor deficits Cranial Nerves: facial strength normal Speech: speech normal Extrem General: no pedal edema and no calf tenderness Psych Appearance: grossly normal Speech and Movement: speech clear Affect: normal affect Objective Last Vital Signs Temp 36.8 C 07/01/21 12:00 Pulse 62 07/01/21 13:45 Resp 16 07/01/21 13:45 BP 154/65 H 07/01/21 13:45 Pulse Ox 93 07/01/21 13:45 Laboratory Results - last 24 hr 06/30/21 06/30/21 06/30/21 20:45 20:45 20:45 WBC 9.49 RBC 5.08 Hgb 13.7 Hct 41.8 MCV 82.3 MCH 27.0 MCHC 32.8 RDW 14.6 H Plt Count 191 MPV 9.9 Immature Gran % 0.4 Neutrophils % 74.2 Lymphocytes % 14.2 Monocytes % 8.9 Eosinophils % 2.0 Basophils % 0.3 Nucleated RBC % 0 Absolute Neutrophils 7.04 H Absolute Lymphocytes 1.35 Absolute Monocytes 0.84 H Absolute Eosinophils 0.19 Absolute Basophils 0.03 PT 10.5 INR 1.0 Sodium 140 Potassium 3.4 L Chloride 104 Carbon Dioxide 29.3 Anion Gap 6.7 BUN 19 H Creatinine 0.9 Estimated GFR/1.73 m2 >= 60.00 Glucose 107 H Calcium 8.8 Magnesium 1.8 Total Bilirubin 0.3 AST 21 ALT 31 Alkaline Phosphatase 71 Troponin I < 50 Total Protein 7.5 Albumin 3.9 TSH Free T4 Urine Color Urine Clarity Urine pH Ur Specific [place] Urine Protein Urine Ketones Urine Blood Urine Nitrite Urine Bilirubin Urine Urobilinogen Ur Leukocyte Esterase Urine RBC Urine WBC Ur Epithelial Cells Urine Crystals Urine Bacteria Urine Casts Urine Mucus Ur Culture Indicated? Urine Glucose Ethyl Alcohol < 3.0 COVID-19 Source SARS-CoV-2 (PCR) Add-On Test Request 06/30/21 06/30/21 06/30/21 21:20 21:45 23:20 WBC RBC Hgb Hct MCV MCH MCHC RDW Plt Count MPV Immature Gran % Neutrophils % Lymphocytes % Monocytes % Eosinophils % Basophils % Nucleated RBC % Absolute Neutrophils Absolute Lymphocytes Absolute Monocytes Absolute Eosinophils Absolute Basophils PT INR Sodium Potassium Chloride Carbon Dioxide Anion Gap BUN Creatinine Estimated GFR/1.73 m2 Glucose Calcium Magnesium Total Bilirubin AST ALT Alkaline Phosphatase Troponin I < 50 Total Protein Albumin TSH Free T4 Urine Color Yellow Urine Clarity Clear Urine pH 7.0 Ur Specific [place] 1.025 Urine Protein Negative Urine Ketones Negative Urine Blood Trace-lysed H Urine Nitrite Negative Urine Bilirubin Negative Urine Urobilinogen 0.2 Ur Leukocyte Esterase Negative Urine RBC 3-5 H Urine WBC 0-2 Ur Epithelial Cells Few Urine Crystals Negative Urine Bacteria Negative Urine Casts Negative Urine Mucus Negative Ur Culture Indicated? No Urine Glucose Negative Ethyl Alcohol COVID-19 Source Nasal/Nares SARS-CoV-2 (PCR) Negative Add-On Test Request 07/01/21 07/01/21 06:30 06:40 WBC RBC Hgb Hct MCV MCH MCHC RDW Plt Count MPV Immature Gran % Neutrophils % Lymphocytes % Monocytes % Eosinophils % Basophils % Nucleated RBC % Absolute Neutrophils Absolute Lymphocytes Absolute Monocytes Absolute Eosinophils Absolute Basophils PT INR Sodium Potassium Chloride Carbon Dioxide Anion Gap BUN Creatinine Estimated GFR/1.73 m2 Glucose Calcium Magnesium Total Bilirubin AST ALT Alkaline Phosphatase Troponin I Total Protein Albumin TSH 7.75 H Free T4 0.78 Urine Color Urine Clarity Urine pH Ur Specific [place] Urine Protein Urine Ketones Urine Blood Urine Nitrite Urine Bilirubin Urine Urobilinogen Ur Leukocyte Esterase Urine RBC Urine WBC Ur Epithelial Cells Urine Crystals Urine Bacteria Urine Casts Urine Mucus Ur Culture Indicated? Urine Glucose Ethyl Alcohol COVID-19 Source SARS-CoV-2 (PCR) Add-On Test Request DONE
[2021-07-01 14:12] LABS: Vitamin B12 508 pg/mL (193-986)
[2021-07-01] MEDS: Atorvastatin 20 MG TAB PO (19:40)
[2021-07-02] VITALS (18 sets, daily range): BP systolic 118–175; BP diastolic 63–83; PULSE 52–70; RESP 10–21; TEMP 36.7–36.9; O2SAT 91–96
[2021-07-02] MEDS: Lisinopril 10 MG TAB PO (06:19)
--- NOTE | 2021-07-02 07:00 | DI.MRI_ITS ---
Exam(s) MR BRAIN WO EXAM: MR BRAIN WO CLINICAL HISTORY: acute confusion/memory loss; evaluate for CVA TECHNIQUE: Multiplanar multisequence MRI of the brain was performed. COMPARISON: CT CT HEAD WO from 06/30/2021 FINDINGS: VENTRICLES AND EXTRA AXIAL SPACES: Normal in size and morphology for the patient's age. HEMORRHAGE: None. CEREBRAL PARENCHYMA: No focus of restricted diffusion to suggest acute infarct. No space-occupying le ced identified. Minimal white matter changes. MIDLINE SHIFT: None. BRAINSTEM/CEREBELLUM: Normal. CALVARIUM: Normal. VISUALIZED PARANASAL SINUSES/MASTOIDS: Mucosal thickening ethmoids. Mucous retention and mucosal thi ckening maxillary sinuses.. OTHER FINDINGS: Orbits and pituitary are unremarkable. Vascular flow voids are intact. IMPRESSION: Unremarkable MRI of the brain. Chronic sinus disease. DATA REPOSITORY:
--- NOTE | 2021-07-02 07:00 | DI.MRI_ITS ---
Exam(s) MR ANGIO BRAIN WO CLINICAL HISTORY: encephalopathy. TECHNIQUE: 3D [id number] noncontrast MRA of the brain was performed. COMPARISON: None. FINDINGS: Carotid Arteries: Petrous: Normal. Cavernous: Normal. Cerebral: Normal. Middle Cerebral Arteries: Right: No aneurysm or significant stenosis. Left: No aneurysm or significant stenosis. Anterior Cerebral Arteries: Right: No aneurysm or significant stenosis. Left: No aneurysm or significant stenosis. Vertebral Arteries: Right: No aneurysm or significant stenosis. Left: No aneurysm or significant stenosis. . Basilar Artery: No aneurysm or significant stenosis. Small Vessels: No evidence of beading. IMPRESSION: Normal MRA examination of the [place]. DATA REPOSITORY:
--- NOTE | 2021-07-02 08:11 | NUR.NOTE ---
08:05. Pt observed , no report of oropharyngeal swelling, able to talk w/o difficulty ROM WNL. Phonew called from spouse in progress with patient.
--- NOTE | 2021-07-02 08:30 | CMPROGNOTE_ITS ---
- If Service Date Differs Date of service: 07/02/21 Time of Service: 13:36 Care Management Progress Note S/O: Frederic continues to be monitored and treated. He had an MRI/MRA of the brain today, CM continues to follow. A: 71 year old male admitted to [facility] 06/30/21 for AMS, Amnesia P: Anticipate Frederic will return home when ready per MD. He will have outpatient follow up, follow up with his PCP and transport with his family.
[2021-07-02] MEDS: Aspirin E.C. 81 MG TABEC PO (08:56)
[2021-07-02] MEDS: Chlorthalidone 25 MG TAB PO ×2 (08:56→10:57)
[2021-07-02] MEDS: amLODIPine 5 MG TAB PO ×2 (08:56→10:53)
[2021-07-02] MEDS: Potassium Chloride 20 MEQ TABCR PO (08:57)
[2021-07-02] MEDS: Enoxaparin 40 MG/0.4 ML SYR SC (08:57)
[2021-07-02] MEDS: Multivitamin TAB 1 TAB PO (08:57)
--- NOTE | 2021-07-02 10:25 | NUR.NOTE ---
Patient has some swelling in his left upper lip. It is thought it may have been caused by the administration of Lisinopril. Dr. Pereyra has dc'd said medication.Nursing Note:
--- NOTE | 2021-07-02 11:19 | NUR.NOTE ---
RN dc's arterial line an applies pressure bandage. Same will be left on until patient completes his MRI.Nursing Note:
--- NOTE | 2021-07-02 12:37 | NUR.NOTE ---
RN returns with patient from MRI. Patient tolerated test well.Nursing Note:
--- NOTE | 2021-07-02 13:35 | DSE_ITS ---
Date of service: 07/02/21 Time of Service: 13:36 DS: Diagnosis Discharge Diagnosis (1) Acute alteration in mental status: Status: Acute (2) Global amnesia: Status: Acute Discharge Plan Disposition Patient Disposition: HOME Condition: Improving Discharge Details Reason For Visit: Acute Mental Status Change,Amnesia Admit Date/Time: 06/30/21 21:55 Admit Provider: Lai Jasmine Attending Provider: Lai Jasmine Primary Care Provider: Geraldine Monge Hospital Course Hospital Course: 71-year-old male with history of hypertension and hypercholesterolemia, prostate cancer who presented to the ED at [facility] with acute confusion. Patient's had been away visiting a sick family member in [place] and returned this evening around 5:30 PM and found her to be confused with short-term memory loss. Patient had just walked into home from their barn the patient reported that he had hit his head. Patient had a large amount of saez in his pocket and could not recall where the money came from and the patient also had forgotten that he recently had bought a [employer] tractor 3 days prior. 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 Patient was evaluated in the emergency department by Dr. 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 Nevertheless she could not state the current year or month nor the [facility] states nor could he recall that he had told his that he did hit his head nor could he recall having bought the tractor. Evaluation in the emergency department clued a CT scan of his head as well as a chest x-ray and routine labs. Noncontrast CT scan of the head was unremarkable. Chest x-ray suggested an indistinct opacity at the left lateral lung base for which minimal scarring or subsegmental atelectasis could not be excluded. Otherwise no acute cardiopulmonary process was detected. Labs including CBC, CMP, blood alcohol level, nasal PCR for SARS-CoV-2, pro time and INR, and a urinalysis. All of his labs were unremarkable except for a mild hypokalemia with a potassium of 3.4. SARS-CoV-2 PCR was negative. Blood alcohol level was less than 3.0 milligrams per deciliter. With regard to his vital signs of note his blood pressure was elevated on admission at 188/104 and was as high as 192/71. Per Dr. Jimenez's discussion with the patient's his usual blood pressure runs in the 160s. He did not receive anything for treatment of his blood pressure in the emergency department and prior to admission his blood pressure was decreased to 165/73. Patient usually takes lisinopril 20 mg daily along with hydrochlorothiazide 25 mg daily. His informed Dr. Jimenez that the patient had been recently complaining of swelling of his tongue intermittently; not occuring at the time of this admission. An aterial line was placed for accurate BP monitoring. A nicardipine drip was initiated. His lisinopril and HCTZ were stopped. Chlorthalidone initiated, then amlodipine added once he was weaned from the cardipene drip was stopped. Neurology evaluated. MRI obtained that was negative for abnormal findings. Dx of transient global amnesia was favored. There could be a component of hypertensive encephalopathy possible. His confusion improved. His BP required increasing his amlodapine from 5mg to 10mg daily and increasing the chlorthalidone from 25 mg to 50 mg daily. Because amlodapine was initiated, his statin was changed from simvastatin to atorvastatin. PCP follow up next week. Home Meds and New Rx's Prescriptions: New atorvastatin 20 mg Tablet 20 mg PO QPM Qty: 30 RF: 0 chlorthalidone 25 mg Tablet 50 mg PO DAILY Qty: 30 RF: 0 amlodipine 5 mg Tablet 10 mg PO DAILY Qty: 60 RF: 0 Continued aspirin [Adult Aspirin Regimen] 81 mg tablet,delayed release (DR/EC) 81 mg PO DAILY RF: 0 multivitamin Tablet 1 tab PO DAILY RF: 0 pantoprazole 40 mg tablet,delayed release (DR/EC) 40 mg PO DAILY RF: 0 tadalafil [Cialis] 5 mg tablet 5 mg PO DAILY PRNRF: 0 mupirocin 2 % ointment 1 applic topical TID 21 Days Qty: 15 RF: 0 Discontinued lisinopril 20 mg tablet 20 mg PO DAILY RF: 0 simvastatin 40 mg tablet 40 mg PO DAILY RF: 0 hydrochlorothiazide 25 mg tablet 25 mg PO DAILY RF: 0 Discharge Instructions Instructions: Chronic Hypertension (DC) Activity:: Activity as Tolerated Equipment/Supplies:: No Equipment Needed Diet:: Low Sodium Discharge Orders Discharge Orders: Discharge Order (Routine); Ordered 07/02/21 Ordered By: Bradford Pereyra DS: Summary Time Spent with Patient providing and/or coordinating discharge services: Greater than 30 minutes Status at Discharge Functional status at discharge: independent ambulation Overall status at discharge: patient is back to baseline Mental Status: mental status grossly normal Speech and Movement: speech and movement normal and speech clear Mood: congruent mood Affect: normal affect Exam Const General: cooperative and no acute distress Nutritional Appearance: obese Orientation: alert and oriented x3 Resp Effort & Inspection: normal respiratory effort Auscultation: clear to auscultation bilaterally Cardio Rate: regular rate Rhythm: regular rhythm Heart Sounds: S1 normal and S2 normal GI Palpation: soft and nontender Neuro General: no focal motor deficits Cranial Nerves: facial strength normal Speech: speech normal Extrem General: no pedal edema and no calf tenderness Psych Appearance: grossly normal Mental Status: mental status grossly normal Speech and Movement: speech and movement normal and speech clear Mood: congruent mood Affect: normal affect DS: Data Vitals/I&O Vitals and I&O: Vital Signs Temperature 36.9 C 07/02/21 09:53 Temperature Source Temporal Artery Scan 07/02/21 09:53 Pulse 68 07/02/21 12:41 Pulse Rhythm Regular 06/30/21 23:46 Pulse 59 L 07/02/21 06:49 Respiratory Rate 21 07/02/21 12:41 Respiratory Effort 07/02/21 09:53 Respiratory Depth Normal 07/02/21 09:53 Respiratory Pattern Normal 07/02/21 09:53 Blood Pressure 154/77 H 07/02/21 12:41 Blood Pressure Mean 105 07/02/21 09:53 Blood Pressure Position Supine 07/02/21 09:53 Pulse Oximetry 94 07/02/21 12:41 Oxygen Delivery Method Room Air 07/02/21 12:41 Oxygen Flow Rate 0 07/02/21 12:41 Pain Level 0 07/02/21 12:41 Comment 07/02/21 09:41 Intake & Output 07/01/21 07/02/21 07/02/21 23:59 11:59 23:59 Intake Total 2093.333 / 2789.583 200 / 200 Output Total 985 / 2225 800 / 800 Balance 1108.333 / 564.583 -600 / -600 Intake: IV 1493.333 / 1829.583 Oral 600 / 960 200 / 200 Output: Urine 985 / 2225 800 / 800 Other: Urine Color Yellow Yellow Urine Appearance Clear Clear Urine Odor None None Comment voiding at bedside with urinal 200ml of yellow urine Voiding Methods Urinal Urinal Data Completed and Pending Labs on day of discharge: Labs from last 24 hours 07/01/21 06:30 Vitamin B12 508 PFSH All Active Problems Acute alteration in mental status (Acute) Global amnesia (Acute) Nasal polyposis (Acute) Lesion of nasal septum (Acute) Medical History Erectile dysfunction GERD (gastroesophageal reflux disease) Hypercholesterolemia Hypertension Left ankle pain Lesion of nasal cavity Obesity Prostate cancer Rotator cuff tear Tremor Surgical History H/O left knee surgery duplicate patella removed History of surgery on left wrist Hx of prostatectomy Hx of wisdom tooth extraction Family History Mother Colon cancer Sister Colon cancer Brother Colon cancer Social History Smoking/Tobacco Use Status: Never Smoking risk assessment performed?: Yes Alcohol Intake: current Alcohol Intake frequency: holidays/special occasions only Drug use: Never Substance use type: does not use Household members: spouse 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
--- NOTE | 2021-07-02 13:37 | PDOC.CMDIS ---
LACE Index Scoring Tool - Questions: Length of Stay (in days): 2 Acuity (Admit via E.D.?): Yes Comorbidities: Any Tumor E.D. Visits: 1 - Answers: Total Score: 8 Risk of Readmission: Low Risk Care Management Discharge Reason for Hospitalization: Acute AMS, amnesia, confusion Discharge Plan: Frederic will return home when ready per MD. He will follow up with his PCP and plan of care as prescribed. He will transport via private vehicle with his , Tiffanie. Patient/Family Education Needs: Review discharge instructions, discuss Ask Me Three.
== END 2021-07-02 15:15 | disposition home or self-care (01) | DRG 305 ==
LOC: ER 23:20 → MS 23:29 → ICU 07-01 01:49
PROVIDERS: Family Medicine; Admitting Provider Internal Medicine; Emergency Provider Emergency Medicine; PCP Family Medicine; Visit Provider Internal Medicine
DX: I16.0 Hypertensive urgency (principal); I10 Essential (primary) hypertension; G45.4 Transient global amnesia; E78.00 Pure hypercholesterolemia, unspecified; K21.9 Gastro-esophageal reflux disease without esophagitis; E66.9 Obesity, unspecified; Z68.36 Body mass index [BMI] 36.0-36.9, adult; R25.1 Tremor, unspecified; Z85.46 Personal history of malignant neoplasm of prostate; W22.09XA Striking against other stationary object, initial encounter
CPT/HCPCS: 36620; 36415; 70544; 80053; 87635; 93005; 96360; 96361; 99223; 99285; J1650; 70450; 70551; 71046; 80320; 81003; 81015; 82607; 83735; 84439; 84443; 84484; 85025; 85610; 93010; 99233; 99239; 99291; J3360; J3490

== ENCOUNTER → 2021-07-01 07:56 | Outpatient (BNVA) | payer MEDICARE, SELFPAY | PROVIDERS: PCP Family Medicine; Referring Provider Family Medicine; Visit Provider Psychiatry & Neurology Neurology | DX: R69 Illness, unspecified (principal) ==

== ENCOUNTER 2021-08-27 01:51 | Outpatient (CLI) | payer MEDICARE, SELFPAY | END 2021-08-27 01:52 | disposition home or self-care (01) | LOC: LBO 01:51 | PROVIDERS: PCP Family Medicine; Visit Provider Otolaryngology ==

== ENCOUNTER 2021-08-30 12:12 | Outpatient (REF) | payer MEDICARE, SELFPAY ==
--- NOTE | 2021-08-30 11:25 | NASALBX_PTH ---
PATIENT: Frederic Melo LOC: N U#:[id number] AGE/SX: 71/M ROOM: RE08/30/[address]: Anatoly Roca MD : 1950 BED: DIS: 08/30/2021 SPEC #: [id number] RECD: 08/30/21 17:47 STATUS: ODILIA REQ #: [id number] ZAMZAM: 08/30/21 11:[address]: Anatoly Roca DEPT: Surgical Specimen RECD BY: Kimber Mobley ENTERED: 08/30/21 17:49 SP TYPE: NASALBX OTHR DR: Geraldine Monge Tissues: NASAL/OROPHARYNX BIOPSY Procedures: GROSS AND MICRO LEVEL 3 Comments: [id number]
== END 2021-08-30 12:13 | disposition home or self-care (01) ==
LOC: LBN 12:12
PROVIDERS: PCP Family Medicine; Visit Provider Otolaryngology
DX: J33.8 Other polyp of sinus (principal); J34.3 Hypertrophy of nasal turbinates
CPT/HCPCS: 88305; 88304

== ENCOUNTER 2022-09-28 16:03 | Outpatient (REF) | payer MEDICARE, SELFPAY ==
[2022-09-28 17:21] LABS: ALT 36 U/L (16-63); AST 19 U/L (15-37); Albumin 3.8 g/dL (3.4-5.0); Alkaline Phosphatase 87 U/L (46-116); Anion Gap 6.7 mmol/L (3-11); BUN 18 mg/dL (7-18); Bilirubin, Total 0.5 mg/dL (0.2-1.0); CO2 33.3 mmol/L (21.0-32.0); Calcium 8.9 mg/dL (8.5-10.1); Calculated LDL 86 mg/dL (<100); Chloride 103 mmol/L (98-107); Cholesterol 152 mg/dL (<200); Estimated GFR 80.97 (mL/min/1.73m2); Glucose 82 mg/dL (74-106); HDL Cholesterol 44 mg/dL (40-60); Sodium 143 mmol/L (136-145); Total Protein 7.6 g/dL (6.4-8.2); Triglyceride 110 mg/dL (<150)
[2022-09-28 17:59] LABS: Vitamin D 25 Total 36.7 ng/mL (30-100)
[2022-09-28 20:55] LABS: Potassium 2.9 mmol/L (3.5-5.1)
[2022-09-29 21:13] LABS: PSA, Screening 4.3 ng/mL (<=6.5)
== END 2022-09-28 16:04 | disposition home or self-care (01) ==
LOC: NCHCN 16:03
PROVIDERS: PCP Family Medicine; Visit Provider Family Medicine
DX: Z12.5 Encounter for screening for malignant neoplasm of prostate (principal); E78.00 Pure hypercholesterolemia, unspecified; E66.8 Other obesity
CPT/HCPCS: 80053; 80061; 82306; 84153

== ENCOUNTER 2022-10-17 17:21 | Outpatient (REF) | payer MEDICARE, SELFPAY ==
[2022-10-17 15:12] LABS: Potassium 3.5 mmol/L (3.5-5.1); TSH 6.87 uIU/mL (0.36-3.74)
== END 2022-10-17 17:22 | disposition home or self-care (01) ==
LOC: NCHCN 17:21
PROVIDERS: PCP Family Medicine; Visit Provider Family Medicine
DX: I10 Essential (primary) hypertension (principal); E78.00 Pure hypercholesterolemia, unspecified; R60.0 Localized edema
CPT/HCPCS: 84132; 84443

== ENCOUNTER 2022-12-20 09:57 | Outpatient (REF) | payer MEDICARE, SELFPAY ==
[2022-12-20 15:03] LABS: TSH (W/Ref FT4) 5.95 uIU/mL (0.36-3.74)
[2022-12-20 15:24] LABS: FREE T4 0.81 ng/dL (0.76-1.46)
== END 2022-12-20 09:58 | disposition home or self-care (01) ==
LOC: NCHCN 09:57
PROVIDERS: PCP Family Medicine; Visit Provider Family Medicine
DX: E03.9 Hypothyroidism, unspecified (principal)
CPT/HCPCS: 84439; 84443

== ENCOUNTER 2023-03-09 09:31 | Outpatient (REF) | payer MEDICARE, SELFPAY ==
[2023-03-09 16:45] LABS: ALT 30 U/L (16-63); AST 24 U/L (15-37); Albumin 3.8 g/dL (3.4-5.0); Alkaline Phosphatase 93 U/L (46-116); BUN 18 mg/dL (7-18); Bilirubin, Total 0.4 mg/dL (0.2-1.0); CREATININE 0.9 mg/dL (0.70-1.30); Calcium 9.7 mg/dL (8.5-10.1); Chloride 101 mmol/L (98-107); Estimated GFR 91.31 (mL/min/1.73m2); FREE T4 0.87 ng/dL (0.76-1.46); Glucose 74 mg/dL (74-106); NT-proBNP 52 pg/mL (<300); Potassium 3.3 mmol/L (3.5-5.1); Sodium 142 mmol/L (136-145); TSH 6.23 uIU/mL (0.36-3.74); Total Protein 7.4 g/dL (6.4-8.2)
[2023-03-09 18:16] LABS: Calculated LDL 79 mg/dL (<100); Cholesterol 141 mg/dL (<200); HDL Cholesterol 44 mg/dL (40-60); Triglyceride 90 mg/dL (<150)
[2023-03-09 19:18] LABS: Vitamin D 25 Total 36.1 ng/mL (30-100)
== END 2023-03-09 09:32 | disposition home or self-care (01) ==
LOC: NCHCN 09:31
PROVIDERS: PCP Family Medicine; Visit Provider Family Medicine
DX: Z00.00 Encounter for general adult medical examination without abnormal findings
CPT/HCPCS: 80053; 80061; 82306; 83880; 84439; 84443; 85025

== ENCOUNTER 2023-05-18 14:04 | Outpatient (REF) | payer MEDICARE, SELFPAY ==
[2023-05-18 15:46] LABS: Abs Immature Grans 0.02 10^3/uL (0.0-0.06); Absolute Basophil Count 0.06 10^3/uL (0.0-0.2); Absolute Eosinophil Count 0.37 10^3/uL (0.0-0.7); Absolute Lymphocyte Count 1.63 10^3/uL (1.2-3.4); Absolute Monocyte Count 0.98 10^3/uL (0.1-0.8); Absolute Neutrophil Count 4.52 10^3/uL (1.2-6.7); Basophils % 0.8; Eosinophils % 4.9; HCT 43.3 % (40.0-50.0); Immature Grans % 0.3; Lymphocytes % 21.5; MCH 25.4 pg (27.0-33.0); MCHC 32.3 % (32.0-36.0); MCV 78 fL (80-95); Monocytes % 12.9; Neutrophils % 59.6; Platelet Count 247 10^3/uL (130-400); RBC 5.52 10^6/uL (4.36-5.78); RDW 15.9 % (11.8-14.1); RDW-SD 44.1 fL; WBC 7.58 10^3/uL (4.4-10.8)
[2023-05-18 16:54] LABS: ALT 33 U/L (16-63); AST 20 U/L (15-37); Albumin 3.7 g/dL (3.4-5.0); Alkaline Phosphatase 80 U/L (46-116); Anion Gap 7.2 mmol/L (3-11); BUN 15 mg/dL (7-18); Bilirubin, Total 0.3 mg/dL (0.2-1.0); CO2 34.8 mmol/L (21.0-32.0); CREATININE 0.9 mg/dL (0.70-1.30); Calcium 9.3 mg/dL (8.5-10.1); Chloride 100 mmol/L (98-107); Estimated GFR 91.31 (mL/min/1.73m2); Glucose 78 mg/dL (74-106); Potassium 3.3 mmol/L (3.5-5.1); Sodium 142 mmol/L (136-145); TSH (W/Ref FT4) 3.74 uIU/mL (0.36-3.74); Total Protein 7.6 g/dL (6.4-8.2)
== END 2023-05-18 14:05 | disposition home or self-care (01) ==
LOC: NCHCN 14:04
PROVIDERS: PCP Family Medicine; Visit Provider Family Medicine
DX: I10 Essential (primary) hypertension (principal); E03.9 Hypothyroidism, unspecified
CPT/HCPCS: 80053; 84443; 85025

== ENCOUNTER 2023-10-09 11:47 | Outpatient (REF) | payer MEDICARE, SELFPAY ==
[2023-10-09 14:56] LABS: ALT 34 U/L (16-63); AST 17 U/L (15-37); Albumin 3.9 g/dL (3.4-5.0); Alkaline Phosphatase 88 U/L (46-116); Anion Gap 8.5 mmol/L (3-11); BUN 21 mg/dL (7-18); Bilirubin, Total 0.4 mg/dL (0.2-1.0); CO2 33.5 mmol/L (21.0-32.0); CREATININE 1.1 mg/dL (0.70-1.30); Calcium 9.3 mg/dL (8.5-10.1); Calculated LDL 85 mg/dL (<100); Chloride 102 mmol/L (98-107); Cholesterol 150 mg/dL (<200); Estimated GFR 71.77 (mL/min/1.73m2); Glucose 91 mg/dL (74-106); HDL Cholesterol 45 mg/dL (40-60); Potassium 3.8 mmol/L (3.5-5.1); Sodium 144 mmol/L (136-145); Total Protein 7.6 g/dL (6.4-8.2); Triglyceride 100 mg/dL (<150)
[2023-10-09 15:10] LABS: Vitamin D 25 Total 38.7 ng/mL (30-100)
[2023-10-09 22:19] LABS: PSA, Diagnostic 5.2 ng/mL (<=6.5)
== END 2023-10-09 11:48 | disposition home or self-care (01) ==
LOC: NCHCN 11:47
PROVIDERS: PCP Family Medicine; Visit Provider Family Medicine
DX: I10 Essential (primary) hypertension (principal); Z00.00 Encounter for general adult medical examination without abnormal findings; C61 Malignant neoplasm of prostate
CPT/HCPCS: 80053; 80061; 82306; 84153

== ENCOUNTER 2024-09-19 03:15 | Outpatient (CLI) | payer MEDICARE, SELFPAY ==
--- NOTE | 2024-09-19 11:29 | W.NUTRFU ---
Date of service: 09/19/24 Time of Service: 09:00 Nutrition Note NOTE: Frederic in for nutrition visit today with his , Tiffanie (and their small dog). Referred for guidance with weight loss. Frederic has been trying to lose weight to alleviate ankle pain as he gets ready to address this through surgery (meets with surgeon in late November). 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 He states this is his exercise and Natali concurs he does a lot of lifting and gets lots of activity doing this. Was denied Zepbound by insurance - still feels this is the way to go as he knows someone who lost 60 pounds. He recently switched from oats for breakfast to 2 fried eggs and a couple pieces of whole fruit. Natali will pack his lunch (notes it is usually a lot of food) - sandwiches. After listening to diet choices it still may seem Frederic would benefit from getting more of his daily protein needs met via plant to get more fiber and other nutrients present in plants for less kcals. Frederic seemed to be stuck on the argument that animal protein is higher quality/more bioavailable. I agreed by stated the goal isn't to give up meat it is to supplement more plants for fiber and focus on gut health as well as cut back on fat kcals. Encouraged more veggies as he has added more fruit but veggies seem like less of a focus. PT took my card to call with questions/. He did accept my offer to email some sample menus with the concepts in mind that I was talking about. will remain available for any questions they have or need for follow up support Time Spent in Nutritional Counseling and Treatment: 25 min
== END 2024-09-19 03:16 | disposition home or self-care (01) ==
LOC: DS 03:15
PROVIDERS: PCP Family Medicine; Visit Provider Dietitian, Registered
DX: E66.9 Obesity, unspecified (principal)
CPT/HCPCS: 00123; 97802

== ENCOUNTER 2024-10-17 08:25 | Outpatient (REF) | payer MEDICARE, SELFPAY ==
[2024-10-17 15:16] LABS: ALT 32 U/L (16-63); AST 21 U/L (15-37); Alkaline Phosphatase 92 U/L (46-116); BUN 20 mg/dL (7-18); Bilirubin, Total 0.3 mg/dL (0.2-1.0); CREATININE 0.9 mg/dL (0.70-1.30); Calcium 9.4 mg/dL (8.5-10.1); Calculated LDL 86 mg/dL (<100); Chloride 102 mmol/L (98-107); Cholesterol 144 mg/dL (<200); Estimated GFR 90.74 (mL/min/1.73m2); Glucose 84 mg/dL (74-106); HDL Cholesterol 42 mg/dL (>or=40); Potassium 3.6 mmol/L (3.5-5.1); Sodium 144 mmol/L (136-145); Total Protein 7.7 g/dL (6.4-8.2); Triglyceride 82 mg/dL (<150)
[2024-10-17 23:09] LABS: PSA, Diagnostic 7.6 ng/mL (<=6.5)
== END 2024-10-17 08:26 | disposition home or self-care (01) ==
LOC: NCHCN 08:25
PROVIDERS: PCP Family Medicine; Visit Provider Family Medicine
DX: E78.00 Pure hypercholesterolemia, unspecified (principal); R97.20 Elevated prostate specific antigen [PSA]
CPT/HCPCS: 80053; 80061; 84153